=== PATIENT | female | born 1980 | race Asian ===

== ENCOUNTER 2020-09-28 10:08 | Outpatient (CLI) | payer MEDICAID ==
--- NOTE | 2020-09-28 11:28 | ULT ---
OB ULTRASOUND: HISTORY: anatomy FINDINGS: A single live intrauterine gestation is seen with measurements corresponding to an estimated gestatio nal age of 20 weeks 0 daysand ANJU at 02/15/2021. The estimated weight measures 305 g or 11 ounces biometry: BPD: 4.77 cm, 20 weeks 3 days HC: 17.76 cm, 20 weeks 2 days AC: 13.76 cm, 19 weeks 2 days FL: 3.20 cm, 20 weeks 0 days heart rate: 144bpm Placenta: Anterior Placenta previa: No JOSE: 16.5cm Cervical length: 4.5cm A three-vessel cord, cord insertion, kidneys, urinary bladder, stomach, 4 chambered heart, late ral ventricles, cerebellum, spine, lips/nose, upper and lower extremities are visualized. No definite anomalies are seen. IMPRESSION: Single live intrauterine gestation of 20 weeks 0 daysestimated gestational age and ANJU at 02/15/2021
== END 2020-09-28 10:09 | disposition home or self-care (01) ==
LOC: BICULT 10:08
PROVIDERS: ATTEND Family Medicine
DX: O09.522 Supervision of elderly multigravida, second trimester (principal); Z3A.20 20 weeks gestation of pregnancy
CPT/HCPCS: 76805

== ENCOUNTER 2020-12-09 16:46 | Day surgery (SDC) | payer MEDICAID, OTHER ==
[2020-12-09] MEDS ORDERED: hydrALAZINE 20 MG/ML VIAL SLOW IVP PRN (17:33)
[2020-12-09 17:35] VITALS: BMI 24.7
[2020-12-09 17:39] VITALS: BP 113/76; TEMP 98.6
--- NOTE | 2020-12-09 18:13 | PDOC.LDHP ---
Labor and Delivery H&P Chief complaint: contractions, abdominal pain HPI: Patient is a 40 yo at 31.0 wga who presents with complaint of contractions that she feels every 4-5 minutes that started earlier today. She was having some occasional contractions yesterday morning, had sexual intercourse yesterday afternoon and contractions became stronger after this. Additionally she complains of some dysuria, burning, and pressure. Denies any excess vaginal discharge, any vaginal bleeding, chest pain, vision changes, nausea, vomiting. She does endorse a headache that has been on/off for most of and heartburn. She has known GERD and takes an OTC antacid. Taking PNVs. Still feeling baby move. Current gestational age (weeks): 31 Due date: 02/10/21 Dating criteria: last menstrual period Grav: 5 Para: 3 (8028) OB History Details: 3 previous , unknown uterine incision, outer scar is lower transverse all term deliveries Current complications: none (denies) Past Medical History: denies Current medications: pre- vitamins Previous surgical history: low tranverse CS (x3) Allergies/Adverse Reactions: Allergies Allergy/AdvReac Type Severity Reaction Status Date / Time No Known Drug Allergies Allergy Verified 12/09/20 17:36 Social history: none - Physical Exam Vital signs reviewed and normal: yes General: resting Lungs: nonlabored breathing Abdomen: NTTP Extremeties: no edema FHT: category 1 [place] contractions every: occasional - Vaginal Exam cm dilated: 0 (closed/thick/high, post) Effacement: 0% Station: -3 - OB Labs Blood type: unknown RH: unknown Antibody Screen: unknown - Assessment Patient is a 40 yo at 31.0 wga who presents with complaint of contractions #Third Trimester #Dysuria -follows with Dr. Olivo -cervical check closed/thick/high, posterior, firm -check UA, will send culture and antibiotics if indicated -cat 1 strip with occasional contractions seen Pharmacy: [facility] Dispo: Check UA. Place on continuous external monitoring. ADDENDUM: 12/09/20, 1900 UA normal. Discussed labor/return precautions with patient. Encouraged patient to keep next appointment with Dr. Olivo. All questions answered. Will discharge patient to home at this time. Phylicia Smith DO, PGY-2 The above H&P was discussed with Dr. Ingram who agrees with plan. Addendum - Attending - Attending Attestation Date/Time: 12/09/201941 I personally evaluated the patient and discussed the management with Dr. Smith. I agree with the History, Examination, Assessment and Plan documented above.
[2020-12-09 18:32] LABS: Bacteria/HPF None Seen HPF (None Seen); Bilirubin Negative (Negative); Blood, Urine Negative (Negative); Clarity Clear (Clear); Glucose, Urine (Dipstick) Normal (Negative); Ketone, Urine Negative (Negative); Leukocyte Negative Leu/uL (Negative); Nitrite Negative (Negative); Protein, Urine (Dipstick) Negative (Neg-Trace); RBC/HPF 0-3 HPF (0-3); Specific Gravity, Urine 1.007 (1.002-1.036); Squamous Epithelial 0-3 HPF (0-3); Urobilinogen Normal mg/dL (Less than 2); WBC/HPF 0-3 HPF (0-3)
[2020-12-09 18:35] LABS: Urine Culture Reflex No No
[2020-12-10] MEDS ORDERED: FLU VACC QS2020-21(6MOS UP)/PF 60 MCG/0.5 ML SYRINGE IM ONE (09:00)
== END 2020-12-09 19:00 | disposition home health service (06) ==
LOC: L&D/OP 16:46
PROVIDERS: ATTEND Family Medicine
DX: O47.03 False labor before 37 completed weeks of gestation, third trimester (principal); O99.613 Diseases of the digestive system complicating pregnancy, third trimester; K21.9 Gastro-esophageal reflux disease without esophagitis; O99.891 Other specified diseases and conditions complicating pregnancy; R30.0 Dysuria; O34.211 Maternal care for low transverse scar from previous cesarean delivery; O09.523 Supervision of elderly multigravida, third trimester; Z3A.31 31 weeks gestation of pregnancy; Z79.899 Other long term (current) drug therapy
CPT/HCPCS: 51701; 81001; 99283

== ENCOUNTER 2021-01-23 04:42 | Emergency (ER) | payer MEDICAID, OTHER ==
[2021-01-23 06:07] LABS: #Basophils 0.1 thou/uL (0.0-0.2); #Eosinphils 0.1 thou/uL (0.0-0.7); #Lymphocytes 1.8 thou/uL (1.20-3.40); #Monocytes 0.4 thou/uL (0.11-0.59); #Neutrophils 4.9 thou/uL (1.40-6.50); %Basophils 0.7 % (0.0-1.0); %Lymphocytes 24.8 % (21.0-51.0); %Neutrophils 68.4 % (42.0-75.0); Hemoglobin 12.1 g/dL (12.0-16.0); Mean Corpuscular HGB CONC 33.5 g/dL (32.0-36.0); Platelet Count 202 thou/uL (130-400); RBC Distribution Width 12.1 % (11.5-14.5); Red Blood Cell (RBC) Count 3.55 mill/uL (4.20-5.40); White Blood Cell (WBC) Count 7.1 thou/uL (4.8-10.8)
[2021-01-23 06:28] LABS: ALT (SGPT) 19 U/L (8-55); AST (SGOT) 23 U/L (5-34); Albumin 3.3 g/dL (3.5-5.0); Alkaline Phosphatase 82 U/L (40-110); Anion Gap 16 mmol/L (10-20); BUN (Urea Nitrogen) 13 mg/dL (7.0-18.7); Bilirubin, Total 0.4 mg/dL (0.2-1.2); Calc. Creatinine Clearance 0 mL/min (70-130); Calcium 9.1 mg/dL (7.8-10.44); Carbon Dioxide 20 mmol/L (22-29); Chloride 106 mmol/L (98-107); Glucose 78 mg/dL (70-105); Lipase 26 U/L (8-78); Potassium 4.2 mmol/L (3.5-5.1); Protein, Total 6.3 g/dL (6.0-8.3); Sodium 138 mmol/L (136-145)
[2021-01-23 07:19] LABS: Bacteria/HPF None Seen HPF (None Seen); Bilirubin Negative (Negative); Blood, Urine 3+ (Negative); Clarity Clear (Clear); Glucose, Urine (Dipstick) Normal (Negative); Ketone, Urine Negative (Negative); Leukocyte Negative Leu/uL (Negative); Nitrite Negative (Negative); Protein, Urine (Dipstick) Negative (Neg-Trace); RBC/HPF 21-50 HPF (0-3); Specific Gravity, Urine 1.016 (1.002-1.036); Urobilinogen Normal mg/dL (Less than 2); WBC/HPF 0-3 HPF (0-3)
[2021-01-23] MEDS ORDERED: diphenhydrAMINE 50 MG/ML VIAL ONE (08:24)
[2021-01-23] MEDS ORDERED: Iopamidol-370 76% 500 ML 1 ML ONE (10:35)
== END 2021-01-23 09:30 | disposition home or self-care (01) ==
LOC: ERS 04:42
DX: L50.9 Urticaria, unspecified (principal); R10.9 Unspecified abdominal pain; R14.0 Abdominal distension (gaseous)
CPT/HCPCS: 36415; 74177; 80053; 81003; 81015; 83690; 85025; 93005; 96374; J1200; Q9967